=== PATIENT | female | born 1970 | race African-American/Black ===

== ENCOUNTER 2017-10-27 23:22 | Emergency (ER) | payer BC ==
[~2017-10-27] VITALS: Ht 162.6 cm; Wt 78.0 kg
--- NOTE | ~2017-10-27 | EKG ---
[address] [place] [address] ELECTROCARDIOGRAM REPORT Name: LIT MORA Room #: [facility]#: [id number] Admission: 10/27/17 Attend Phys: Discharge: 10/28/17 Date of : 68 Report #: [id number] THIS REPORT FOR: //name// [facility] ED Test Date: 2017-10-28 Test Time: 00:04:43 Pat Name: LIT MORA Department: Room: Gender: F Student Life Advisor: [place] : 1970 Requested By: Kristina Chaudhari Order Number: [id number] MD: José Miguel Nicholson Measurements Intervals [place] Rate: 72 P: 35 CT: 189 QRS: 12 QRSD: 83 T: -1 QT: 415 QTc: 455 Interpretive Statements Sinus rhythm Left ventricular hypertrophy Anterior Q waves, possibly due to LVH Borderline T abnormalities Compared to ECG 01/07/2014 10:50:41 Left ventricular hypertrophy now present T-wave abnormality now present Electronically Signed On 10-28-2017 8:18:14 [employer] SERV[employer]GER by José Miguel Nicholson [email or web address] <ELECTRONICALLY SIGNED> By: José Miguel Nicholson MD, [facility] 10/28/17817 0004 0004 José Miguel Nicholson MD, [facility] /EPI
[~2017-10-27 23:22] MED LIST: ACETAMINOPHEN-120 ML PO; AMOXICILLIN875 MG PO; FLEXERIL PO; MOTION RELIEF25 MG PO; NORCO 5-325 TA1 EACH PO; PREDNISONE 20 M20 MG PO; PROAIR HFA8.5 GM IH
[2017-10-27 23:51] LABS: ABSOLUTE NEUTROPHILS 4.2 thou/uL (1.4-8.2); BASOPHILS 0.6 % (0.0-2.0); HEMATOCRIT 38.8 % (37.0-47.0); HEMOGLOBIN 13.3 gm/dL (12.0-15.0); LYMPHOCYTES 28.4 % (24.0-44.0); MCH 30.5 pg (26.0-34.0); MCHC 34.2 g/dL (28.0-37.0); MCV 89.1 fL (80.0-100.0); MONOCYTES 8.4 % (1.0-8.0); PLATELET COUNT 195 thou/uL (150-400); POLYS 56.6 % (36.0-66.0); RBC 4.36 mil/uL (4.20-5.00); RDW 13.5 % (10.5-14.5); WBC 7.4 thou/uL (4.0-11.0)
[2017-10-27 23:54] LABS: CALCIUM 9.2 mg/dL (8.5-10.1); CREATININE 0.9 mg/dL (0.6-1.0); POTASSIUM 3.5 mmol/L (3.5-5.1)
[2017-10-28 01:18] LABS: URINE BILIRUBIN NEGATIVE (Negative); URINE BLOOD 1+ (Negative); URINE CLARITY CLEAR; URINE COLOR ORANGE; URINE GLUCOSE-RANDOM* NEGATIVE (Negative); URINE KETONES NEGATIVE (Negative); URINE LEUKOCYTES-REFLEX NEGATIVE (Negative); URINE NITRITE-REFLEX NEGATIVE (Negative); URINE PROTEIN (DIPSTICK) NEGATIVE (Negative); URINE SPECIFIC GRAVITY 1.025 (1.005-1.035)
[2017-10-28 01:23] LABS: AMP/METHAMP Negative (Negative); BARBITURATES Negative (Negative); BENZODIAZEPINES Negative (Negative); COCAINE Negative (Negative); METHADONE Negative (Negative); OPIATES Negative (Negative); PCP Negative (Negative)
[2017-10-28 01:28] LABS: SQUAMOUS 0-3 Few /LPF (0-3); URINE RBC 3-10 Few /HPF (0-2)
[2017-10-28 01:29] LABS: BACTERIA-REFLEX 1-9 Few /HPF (None Seen); CASTS None Seen /LPF (None Seen); CRYSTALS None Seen /LPF (None Seen); MUCUS 4-6 Moderate strn/LPF (None Seen); URINE WBC-REFLEX 0-5 Rare /HPF (0-5)
== END 2017-10-28 02:10 | disposition home or self-care (01) ==
LOC: ER 23:22
PROVIDERS: Emergency Medicine
DX: R53.1 Weakness (principal); F10.99 Alcohol use, unspecified with unspecified alcohol-induced disorder

== ENCOUNTER 2020-06-01 11:49 | Emergency (ER) | payer BC ==
[~2020-06-01] VITALS: Ht 154.9 cm; Wt 73.9 kg
[2020-06-01] MEDS ORDERED: PROAIR HFA8.5 GM INH (13:39)
[2020-06-01] MEDS ORDERED: PROMETH-CODEIN 65 ML PO (13:39)
[2020-06-01 13:58] VITALS: BP 147/69
== END 2020-06-01 14:09 | disposition home or self-care (01) ==
LOC: ER 11:49
DX: U07.1 COVID-19 (principal); R05 Cough

== ENCOUNTER 2020-06-04 14:53 | Emergency (ER) | payer BC ==
[~2020-06-04] VITALS: Ht 154.9 cm; Wt 72.6 kg
[~2020-06-04 14:53] MED LIST changes: +PROAIR HFA8.5 GM INH; +PROMETH-CODEIN 65 ML PO
[2020-06-04 15:43] LABS: BASOPHILS 0.1 % (0.0-2.0); EOSINOPHILS 0.6 % (0.0-3.0); HEMATOCRIT 37.3 % (37.0-47.0); HEMOGLOBIN 12.7 gm/dL (12.0-15.0); LYMPHOCYTES 14.4 % (24.0-44.0); MCH 30.3 pg (26.0-34.0); MCV 88.9 fL (80.0-100.0); MONOCYTES 6.1 % (1.0-8.0); PLATELET COUNT 176 thou/uL (150-400); POLYS 78.8 % (36.0-66.0); RDW 13.8 % (10.5-14.5); WBC 6.4 thou/uL (4.0-11.0)
[2020-06-04 15:56] LABS: ANION GAP 9 mmol/L (7-16); BUN 10 mg/dL (7-18); CALCIUM 8.8 mg/dL (8.5-10.1); CHLORIDE 101 mmol/L (98-107); CO2 28 mmol/L (21-32); CREATININE 0.8 mg/dL (0.6-1.0); GLUCOSE 124 mg/dL (74-106); POTASSIUM 3.7 mmol/L (3.5-5.1); SODIUM 138 mmol/L (136-145)
[2020-06-04 16:06] LABS: ALBUMIN 3.6 g/dL (3.4-5.0); DIRECT BILIRUBIN 0.1 mg/dL (<0.1-0.2); SGOT 25 U/L (15-37); SGPT 31 U/L (30-65); TOTAL BILIRUBIN 0.4 mg/dL (0.2-1.0); TOTAL PROTEIN 8.1 g/dL (6.4-8.2); TROPONIN-I <0.06 ng/mL (<0.06)
[2020-06-04 17:42] VITALS: BP 124/80
--- NOTE | 2020-06-05 07:37 | EKG ---
[facility] [place] [address] ELECTROCARDIOGRAM REPORT Name: LIT MORA Room #: [facility]#: [id number] Admission: 06/04/20 Attend Phys: Discharge: 06/04/20 Date of : [birth year] Report #: [id number] THIS REPORT FOR: cc: FAM - Family physician unknown FAM - Family physician unknown José Miguel Nicholson MD [facility] THIS REPORT FOR: //name// [facility] ED Test Date: 2020-06-04 Test Time: 15:23:22 Pat Name: LIT MORA Department: Room: Gender: F Conventional Mortgage Underwriter: [facility] : 1970 Requested By: Mathew Hernandez Order Number: [id number] MD: José Miguel Nicholson Measurements Intervals [place] Rate: 106 P: 50 MA: 150 QRS: 5 QRSD: 76 T: 12 QT: 314 QTc: 417 Interpretive Statements Sinus tachycardia Left ventricular hypertrophy Compared to ECG 10/28/2017 00:04:43 Q waves no longer present T wave abnormality less prominent Electronically Signed On 06-05-2020 7:36:51 CDT by José Miguel Nicholson [email or web address] <ELECTRONICALLY SIGNED> By: José Miguel Nicholson MD, FAC 06/05/20 0736 1523 1523 José Miguel Nicholson MD, [facility] /EPI
== END 2020-06-04 17:44 | disposition home or self-care (01) ==
LOC: ER 14:53
PROVIDERS: Emergency Medicine
DX: U07.1 COVID-19 (principal); M79.661 Pain in right lower leg

== ENCOUNTER → 2020-09-11 | Outpatient (CLI) | payer BC | LOC: RAD 12:11 | PROVIDERS: ATTEND Nurse Practitioner | DX: U07.1 COVID-19 (principal) ==

== ENCOUNTER → 2020-09-23 | Outpatient (CLI) | payer BC | LOC: SJCVCIMAG 07:37 | PROVIDERS: ATTEND Internal Medicine | DX: R00.0 Tachycardia, unspecified (principal); R94.31 Abnormal electrocardiogram [ECG] [EKG]; F32.0 Major depressive disorder, single episode, mild; F41.9 Anxiety disorder, unspecified; R03.0 Elevated blood-pressure reading, without diagnosis of hypertension; R07.2 Precordial pain; E11.9 Type 2 diabetes mellitus without complications; Z86.16 Personal history of COVID-19; Z82.49 Family history of ischemic heart disease and other diseases of the circulatory system ==

== ENCOUNTER 2021-08-26 10:28 | Emergency (ER) | payer BC ==
[~2021-08-26] VITALS: Ht 154.9 cm; Wt 72.6 kg
[2021-08-26 10:50] VITALS: BP 134/77
== END 2021-08-26 11:57 | disposition home or self-care (01) ==
LOC: ER 10:28
DX: J06.9 Acute upper respiratory infection, unspecified (principal); Z20.822 Contact with and (suspected) exposure to COVID-19; Z98.890 Other specified postprocedural states; Z79.51 Long term (current) use of inhaled steroids; Z79.899 Other long term (current) drug therapy